=== PATIENT | female | born 2000 | race Caucasian/White ===

== ENCOUNTER 2020-03-04 19:15 | Emergency (ER) | payer MEDICAID, SELFPAY ==
[2020-03-04 19:19] VITALS: BP 121/82; PULSE 107; RESP 16; TEMP 37; O2SAT 99; BMI 29.7
--- NOTE | 2020-03-04 19:31 | XR_ITS ---
WS: [id number] Right foot, 3 views, 03/04/2020 Clinical Data: trauma Comparison: None. Findings: No fractures or dislocations are seen. No bone destruction or erosion is noted. The joint spaces and soft tissues are normal. XR/XR foot RT min 3V* [id number] Impression: Negative right foot.
--- NOTE | 2020-03-04 19:55 | ED_ITS ---
HPI - Extremity Problem General: Chief complaint: Extremity Injury, Lower Stated complaint: Rt foot pain Time Seen by Provider: 03/04/20 19:47 History of Present Illness: HPI Narrative: Patient complains about right foot pain that occurred at work she did know how she did it but it is hurt since then a couple days. Complaint: extremity pain Onset (ago): day(s) Pain Consistency: constant Location: right and lower extremity Severity scale (1-10): 4 Quality: aching Radiation: none Relieving factors: immobilization Exacerbating factors: range of motion and weight bearing Associated symptoms: Reports no associated symptoms; Deny chest pain, fever(s) or rash Review of Systems Const: Denies: fever(s), chills or body aches Eyes: Denies: change in vision or blurry vision ENMT: Denies: throat pain or nasal congestion Card: Denies: chest pain or dyspnea on exertion Resp: Denies: dyspnea, productive cough or non-productive cough GI: Denies: abdominal pain, nausea or vomiting Musc: Reports: extremity pain (Right foot injured at work thinks she might of twisted it.) Skin/Breast: Denies: rash Neuro: Denies: headache(s) Psych: Denies: anxiety or depression Christophe/Lymph: Denies: easy bruising Physical Exam Const: COMMON NORMALS: no acute distress, average body habitus and patient oriented x3 HENMT: COMMON NORMALS: normocephalic HEAD & SCALP: normal to inspection and normocephalic FACE & SINUS: normal facial exam Eye: COMMON NORMALS: conjunctivae normal GENERAL EYE: appearance normal, both eyes and all related structures CONJUNCTIVA: Yes conjunctivae normal Neck/C-Spine: COMMON NORMALS: no JVD Chest: COMMONS NORMALS: normal inspection of the chest Resp: COMMON NORMALS: normal respiratory effort Cardio: COMMON NORMALS: no JVD GI: INSPECTION: Yes normal to inspection Extremity: COMMON NORMALS: normal to inspection and full ROM RIGHT LOWER EXTREMITY: Yes foot & digits (Swelling to the lateral midfoot and or to the touch) Neuro: COMMON NORMALS: patient oriented x3 Course Vital Signs: Vital signs: Vital Signs Temperature 98.6 F 03/04/20 19:19 Pulse Rate 88 03/04/20 20:23 Respiratory Rate 16 03/04/20 20:23 Blood Pressure 153/81 03/04/20 20:23 Pulse Oximetry 97 03/04/20 20:23 Discharge Plan Discharge Patient Disposition: Home Clinical Impression: Foot sprain Qualifiers: Encounter type: initial encounter Laterality: right Qualified Code(s): S93.601A - Unspecified sprain of right foot, initial encounter Condition: Stable Discharge Orders: Discharge ED (Routine); Ordered 03/04/20 Ordered By: Cristiano Rouse Referrals: Parveen Lewis FNP [Primary Care Provider] - Discharge Diet: Usual diet Discharge Activity: Increase activity as tolerated Patient Instructions: Foot Sprain (ED) Activity Restrictions/Additional Instructions: Tylenol or ibuprofen for discomfort. Apply ice to the area as needed walk as much as possible. Can elevate help reduce swelling. Coding Level of Care Code ED Soft Sugar Supervisor for Silvia Mascorro
[2020-03-04 20:23] VITALS: BP 153/81; PULSE 88; RESP 16; O2SAT 97
--- NOTE | 2020-03-04 20:24 | PC.NURSE ---
luca wrap to right ankle
== END 2020-03-04 20:25 | disposition home or self-care (01) ==
PROVIDERS: Emergency Provider Nurse Practitioner Family; PCP Nurse Practitioner Family
DX: S93.601A Unspecified sprain of right foot, initial encounter (principal); X58.XXXA Exposure to other specified factors, initial encounter
CPT/HCPCS: 12345; 73630; 99281; 99282

== ENCOUNTER → 2022-12-31 11:54 | Outpatient (BNVA) | payer MEDICAID, SELFPAY | PROVIDERS: PCP Nurse Practitioner Family; Visit Provider Emergency Medicine | DX: Z20.822 Contact with and (suspected) exposure to COVID-19 (principal); U07.1 COVID-19 | CPT/HCPCS: 87426 ==